=== PATIENT | female | born 1930 | race Caucasian/White ===

== ENCOUNTER 2018-06-24 13:37 | Emergency (ER) | payer MEDICARE, MEDICAID ==
[~2018-06-24] VITALS: Ht 152.4 cm; Wt 64.0 kg
[2018-06-24] MEDS ORDERED: ACETAMINOPHEN 325MG TABLET PO ONE (15:00)
[2018-06-24 17:19] VITALS: BP 165/85
== END 2018-06-24 17:22 | disposition home or self-care (01) ==
LOC: ER 13:46
DX: M25.561 Pain in right knee (principal); R42 Dizziness and giddiness; E11.9 Type 2 diabetes mellitus without complications; I10 Essential (primary) hypertension; Z86.73 Personal history of transient ischemic attack (TIA), and cerebral infarction without residual deficits; Z88.0 Allergy status to penicillin
CPT/HCPCS: 73502; 73552; 73562; 99283